=== PATIENT | female | born 1985 | race Caucasian/White ===

== ENCOUNTER 2019-03-14 10:55 | Day surgery (SDC) | payer BC ==
[2019-03-09 15:03] VITALS: BMI 28.3
[~2019-03-14 10:55] MED LIST: LACTATED RINGERS 1,000 ML IV SCH; LIDOCAINE 1% 20 ML VIAL (10MG/ML) FOR IV START INTRADERMA PRN
[2019-03-14 11:48] VITALS: TEMP 99
[2019-03-14] MEDS ORDERED: PROPOFOL 10 MG/ML 20 ML VIAL IV ONE (13:05)
--- NOTE | 2019-03-14 13:18 | P.PCN ---
Date of Procedure: 03/14/19 Procedure(s) Performed: BRIEF HISTORY: Patient is a 33-year-old pleasant male, scheduled for an elective colonoscopy as a part of evaluation of lower abdominal pain and change in bowel habits with intermittent rectal bleeding. PROCEDURE PERFORMED: Colonoscopy. PREOPERATIVE DIAGNOSIS: Lower abdominal Pain/intermittent rectal bleeding and change in bowel habits. IV sedation per Anesthesia. PROCEDURE: After informed consent was obtained, the patient, was brought into the endoscopy unit. IV sedation was administered by Anesthesia under continuous monitoring. Digital rectal examination was normal. Initially the Olympus CF-160 flexible video colonoscope was then inserted in the rectum, gradually advanced into the cecum without any difficulty. Careful examination was performed as the scope was gradually being withdrawn. Ileocecal valve and the appendiceal orifice were visualized and appeared normal. Prep was excellent. Mucosa of the cecum, ascending colon, transverse colon, descending colon, sigmoid colon, and rectum appeared normal. Retroflexion was performed in the rectum and no lesions were seen. The patient tolerated the procedure well. IMPRESSION: Normal-appearing colon from rectum to cecum . RECOMMENDATIONS: Findings of this examination were discussed with the patient as well as a family. She was advised to be a high-fiber diet and fiber supplements a regular basis..
[2019-03-14 13:42] VITALS: BP 103/68; PULSE 47; RESP 16
== END 2019-03-14 13:57 | disposition home or self-care (01) ==
LOC: ORWHC2ENDO 10:55 → MERGE 10:55 → ORWHC2ENDO 13:57
PROVIDERS: ATTEND Internal Medicine Gastroenterology
DX: K62.5 Hemorrhage of anus and rectum (principal); Z87.440 Personal history of urinary (tract) infections; F41.9 Anxiety disorder, unspecified; F31.9 Bipolar disorder, unspecified; Z87.891 Personal history of nicotine dependence; Z91.09 Other allergy status, other than to drugs and biological substances
CPT/HCPCS: 81025; 45378; J2704

== ENCOUNTER → 2019-12-20 | Outpatient (CLI) | payer BC | END | disposition home or self-care (01) | LOC: LABWHC1 10:06 | PROVIDERS: ATTEND Internal Medicine Geriatric Medicine | DX: Z20.828 Contact with and (suspected) exposure to other viral communicable diseases (principal) | CPT/HCPCS: U0003; C9803 ==